=== PATIENT | female | born 1940 | race Caucasian/White ===

== ENCOUNTER 2023-09-07 12:22 | Emergency (ER) | payer MEDICARE, SELFPAY ==
[2023-09-07 12:22] VITALS: BP 166/90; PULSE 90; RESP 20; TEMP 36.3; O2SAT 98; BMI 18.9
--- NOTE | 2023-09-07 12:32 | CT_ITS ---
FINAL REPORT CLINICAL HISTORY: trauma, critical injury suspected COMPARISON: None FINDINGS: Axial imaging of the lumbar spine was obtained without contrast. Sagittal and coronal reformatted images were also obtained and reviewed.This study was performed with techniques to keep radiation doses as low as reasonably achievable (ALARA). Individualized dose reduction techniques using automated exposure control or adjustment of mA and/or kV according to the patient's size were employed. There is no fracture. Rightward curvature is noted of the lumbosacral spine. There is mild retrolisthesis of L1 on L2. Vacuum phenomenon is noted at several levels. The disc spaces are preserved. There is no evidence of significant central canal stenosis. IMPRESSION: No acute bony abnormality. Reviewed, Interpreted and Dictated by Dayo Brown III, MD Transcribed by Ondina Zhang Authenticated and [facility]
--- NOTE | 2023-09-07 12:32 | CT_ITS ---
FINAL REPORT CLINICAL HISTORY: Fell 10 feet onto head. FINDINGS: Axial CT images of the cervical spine were obtained without contrast. Sagittal and coronal reformatted images were also obtained. This study was performed with techniques to keep radiation doses as low as reasonably achievable (ALARA). Individualized dose reduction techniques using automated exposure control or adjustment of mA and/or kV according to the patient's size were employed. There is no evidence of fracture or dislocation. There are moderate degenerative changes with multilevel neural foraminal narrowing. There is moderate anterolisthesis of L3 on 4. There is no evidence of canal stenosis. No paraspinous soft tissue abnormality is seen. Limited images of the upper thorax are unremarkable. Right carotid stent is identified. IMPRESSION: Moderate degenerative changes without acute bony abnormality. Reviewed, Interpreted and Dictated by Dayo Brown III, MD Transcribed by Fiona Katz Authenticated and [facility]
--- NOTE | 2023-09-07 12:32 | CT_ITS ---
FINAL REPORT TECHNIQUE: Axial images through the pelvis were performed by computed tomography. Sagittal and coronal reconstruction images were performed. This study was performed with techniques to keep radiation doses as low as reasonably achievable (ALARA). Individualized dose reduction techniques using automated exposure control or adjustment of mA and/or kV according to the patient's size were employed. CLINICAL HISTORY: fall, L sided pain COMPARISON: None FINDINGS: No fracture is identified. No dislocation identified. No significant degenerative changes identified. There are mild vascular calcifications. Left iliac vein stent is present. IMPRESSION: No acute process. Reviewed, Interpreted and Dictated by Dayo Brown III, MD Transcribed by Ondina Zhang Authenticated and [facility]
--- NOTE | 2023-09-07 12:32 | CT_ITS ---
FINAL REPORT CLINICAL HISTORY: Fell 10 feet onto head. L chest tenderness COMPARISON: None FINDINGS: Thin section axial CT images of the chest were obtained with contrast. 3D reformatted images were also obtained. This study was performed with techniques to keep radiation doses as low as reasonably achievable (ALARA). Individualized dose reduction techniques using automated exposure control or adjustment of mA and/or kV according to the patient's size were employed. There is no evidence of pulmonary embolism. There is no evidence of thoracic aortic aneurysm or dissection. There is no evidence of mediastinal or hilar mass or adenopathy. There is no evidence of pulmonary mass or nodule. No localized inflammatory process is seen within the lungs. Mild atelectasis is noted bilaterally. There are nondisplaced lateral rib fractures of the left fifth, sixth, seventh, and eighth ribs. No evidence of pneumothorax is seen. No pleural effusion is identified. IMPRESSION: Fractures of the left fifth through eighth ribs laterally, nondisplaced, without evidence of pneumothorax or pleural effusion. No evidence of thoracic aorta dissection or aneurysm is seen. There is no evidence of pulmonary embolus. Reviewed, Interpreted and Dictated by Dayo Brown III, MD Transcribed by Angelia Stewart Authenticated and [facility]
--- NOTE | 2023-09-07 12:32 | CT_ITS ---
FINAL REPORT TECHNIQUE: Thin-section axial CT with IV contrast supplemented with multi planar reconstruction under CT angiogram protocol was performed of the neck. This study was performed technique to keep radiation doses as low as reasonably achievable, (ALARA). NASCET criteria was utilized during interpretation. CLINICAL HISTORY: trauma, critical injury suspected COMPARISON: None FINDINGS: Aortic arch: Arch shows no significant narrowing. Great vessel origins are widely patent. Right carotid: There is a stent present in the right common carotid artery extending into the internal carotid artery, which is patent. Left carotid: There is mild plaque at the left carotid bulb without evidence of significant stenosis. Vertebrals: Left vertebral artery is dominant. No significant stenosis is present. IMPRESSION: Stent in the right common carotid artery extending into the internal carotid artery, patent. Mild plaque in the left carotid bulb without evidence of significant stenosis. No evidence of significant narrowing or dissection in any of the cervical vessels. Reviewed, Interpreted and Dictated by Dayo Brown III, MD Transcribed by Angelia Stewart Authenticated and [facility]
--- NOTE | 2023-09-07 12:32 | CT_ITS ---
FINAL REPORT CLINICAL HISTORY: Fell 10 feet onto head. FINDINGS: Axial images of the head were obtained without contrast. Coronal reformatted images were also obtained. This study was performed with techniques to keep radiation doses as low as reasonably achievable (ALARA). Individualized dose reduction techniques using automated exposure control or adjustment of mA and/or kV according to the patient's size were employed. There is generalized age-appropriate atrophy. Periventricular low-attenuation areas are seen consistent with moderate chronic ischemic changes. There is right convexity encephalomalacia. There is no evidence of intracranial hemorrhage or mass. There is no evidence of acute infarct. There is no evidence of shift of the midline structures. There is right scalp soft tissue air. There is opacification of several left mastoid air cells. IMPRESSION: Atrophy and moderate periventricular chronic ischemic changes. Right scalp soft tissue air. Reviewed, Interpreted and Dictated by Dayo Brown III, MD Transcribed by Fiona Katz Authenticated and . [facility]
--- NOTE | 2023-09-07 12:32 | CT_ITS ---
FINAL REPORT CLINICAL HISTORY: trauma, critical injury suspected COMPARISON: None FINDINGS: Axial CT images of the thoracic spine were obtained without contrast. Sagittal and coronal reformatted images were also obtained. This study was performed with techniques to keep radiation doses as low as reasonably achievable (ALARA). Individualized dose reduction techniques using automated exposure control or adjustment of mA and/or kV according to the patient''s size were employed. There is no evidence of fracture. There is dextroscoliosis of the thoracic spine. Mild degenerative changes are noted. There is no evidence of significant canal stenosis. Numerous bilateral renal stones are noted. IMPRESSION: No fracture or acute bony abnormality. No significant central canal stenosis. Numerous bilateral renal stones. Reviewed, Interpreted and Dictated by Dayo Brown III, MD Transcribed by Ondina Zhang Authenticated and [facility]
--- NOTE | 2023-09-07 12:32 | CT_ITS ---
FINAL REPORT TECHNIQUE: A CTA of the abdomen and pelvis was performed. This study was performed with techniques to keep radiation doses as low as reasonably achievable (ALARA). Individualized dose reduction techniques using automated exposure control or adjustment of mA and/or kV according to the patient's size were employed. CLINICAL HISTORY: Fell 10 feet onto head. L chest tenderness COMPARISON: None FINDINGS: CTA ABDOMEN AND PELVIS: ABDOMEN/PELVIS: There is mild nonspecific gallbladder wall thickening. The liver, spleen, pancreas, adrenals are unremarkable in appearance. Bilateral renal cysts are present, however there is a 16mm mass in the mid right kidney with peripheral calcification or enhancement, that does not have an appearance consistent with a simple cyst. Left renal scarring with caliectasis is present. The appendix is normal in appearance. No free fluid or free air is identified in the abdomen or pelvis. CTA: The abdominal aorta is ectatic without evidence of dissection. The celiac, superior mesenteric artery, are unremarkable in appearance. The inferior mesenteric artery is patent. There is mild irregular plaque in the renal arteries bilaterally without significant stenosis. The iliac arteries reveal mild plaque but no significant stenosis. A left common iliac vein stent is present. There is ectasia of the common femoral arteries bilaterally. IMPRESSION: No significant vascular abnormality is identified, specifically no evidence of vascular dissection is seen. Mild plaque in the renal arteries without significant stenosis. 16 mm mid right renal mass with peripheral calcification or enhancement, that does not have an appearance suggestive of a simple cyst. Suggest renal mass protocol CT or MRI for further evaluation. Reviewed, Interpreted and Dictated by Dayo Brown III, MD Transcribed by Angelia Stewart Authenticated and [facility]
--- NOTE | 2023-09-07 12:32 | CT_ITS ---
FINAL REPORT TECHNIQUE: Thin section axial CT with IV contrast supplemented with multiplanar reconstruction under CT angiogram protocol. 3-D reconstructions were performed. This study was performed with techniques to keep radiation doses as low as reasonably achievable (ALARA). Individualized dose reduction techniques using automated exposure control or adjustment of mA and/or kV according to the patient''s size were employed. CLINICAL HISTORY: trauma, critical injury suspected COMPARISON: None FINDINGS: The distal vertebral, basilar and distal internal carotid arteries have an unremarkable appearance. No aneurysm is seen. Major intracranial vessels are patent without significant stenosis. IMPRESSION: No significant intracranial vascular abnormality identified. Reviewed, Interpreted and Dictated by Dayo Brown III, MD Transcribed by Angelia Stewart Authenticated and [facility]
--- NOTE | 2023-09-07 12:37 | ED_ITS ---
Discharge Plan Disposition Patient Disposition: Home, Self-Care Prescriptions Prescriptions: New hydrocodone-acetaminophen 5-325 mg tablet 1 tab PO Q6H PRN (Reason: pain) Qty: 10 0RF methocarbamol 750 mg tablet 1,500 mg PO TID 5 Days Qty: 30 0RF Referrals Follow up/Referrals: Provider,Referral, MD [Primary Care Provider] - See instructions Activity Restrictions/Add. Instructions Additional Instructions/Restrictions: Call your family doctor to establish care for this visit to the emergency department and schedule follow-up within 48 hours to ensure improvement. If you have any worsening of your condition or any other concerning signs or symptoms, return to the emergency department or your primary care doctor for further evaluation. Clinical Impressions Clinical Impression: Fracture of multiple ribs of left side, Closed head injury, Fall Discharge ED Provider: Maxime Serrano General Adult HPI General Chief complaint: Fall Stated complaint: fall Time Seen by Provider: 09/07/23 12:28 History of Present Illness HPI narrative: Please note that above description of symptoms, in this electronic medical record under categorization of recalled from ER triage doctor by RN are reflective of an initial nursing assessment, however, is not reflective of my full history and physical exam that was personally taken and clarified. Consequentially, this preceding description of symptoms, which may include the patient's categorized chief complaint in the EMR, do not reflect my personal clinical impression, and the ultimate description of history of present illness and patient stated complaints should be deferred to this section of the note. Unless stated otherwise or congruent with this section of the note, additional signs, symptoms, or incongruence should be interpreted as inaccurate with my clinical impression. Related Data Previous Rx's Medication Instructions Recorded hydrocodone 5 mg-acetaminophen 325 1 tab PO Q6H PRN pain #10 tabs 09/07/23 mg tablet methocarbamol 750 mg tablet 1,500 mg (2 x 750 mg) PO TID 5 09/07/23 days #30 tabs Allergies Allergy/AdvReac Type Severity Reaction Status Date / Time ciprofloxacin Allergy Unknown Verified 09/07/23 12:39 allergy reaction codeine Allergy Unknown Verified 09/07/23 12:39 allergy reaction guaifenesin Allergy Unknown Verified 09/07/23 12:39 allergy reaction levofloxacin [From Levaquin] Allergy Unknown Verified 09/07/23 12:39 allergy reaction meperidine [From Demerol] Allergy Unknown Verified 09/07/23 12:39 allergy reaction morphine Allergy Unknown Verified 09/07/23 12:39 allergy reaction Penicillins Allergy Unknown Verified 09/07/23 12:39 allergy reaction Sulfa (Sulfonamide Allergy Unknown Verified 09/07/23 12:39 Antibiotics) allergy reaction PFSH PFS Disclaimer: The information contained in this section may have been updated after the patient was seen, as this information can be updated by other users. Social History Smoking Status: Never smoker alcohol intake: former current occupational status: unemployed Travel in the last 8 weeks: None ROS Obtained: Yes All systems reviewed & no additional complaints except as documented Physical Exam General General appearance: alert Head Head exam: normocephalic and other (Last ration) Eye Eye exam: Present normal appearance, PERRL and EOMI Neck Neck exam: Present normal inspection, full ROM and trachea midline Chest Chest inspection: Present tenderness Respiratory Respiratory exam: Absent respiratory distress, wheezes, stridor, accessory muscle use or prolonged expiratory phase Cardiovascular Cardiovascular exam: Present other (Pulses equal symmetric in upper and lower extremities) Abdominal Exam Abdominal exam: Present soft; Absent distention, tenderness or pulsatile mass Extremities Exam Extremities exam: Absent edema Neurological Exam Neurological exam: Present alert, oriented X3 and CN II-XII intact; Absent motor sensory deficit Skin Skin exam: Present warm and dry; Absent diaphoresis or erythema Medical Decision Making Medical Records Medical records reviewed: Yes I reviewed the patient's medical records. Marv Inquiry Pt receiving controlled substance: No Marv was queried for this patient: No Vital Signs: 09/07/23 12:22 09/07/23 13:30 09/07/23 14:00 Temperature 97.4 F L Temperature Source Oral Pulse Rate 84 90 Pulse Rate [Right] 90 Respiratory Rate 20 Blood Pressure 172/99 H 180/109 H Blood Pressure [Right Arm] 166/90 H Blood Pressure Mean 147 153 Blood Pressure Mean [Right Arm] 115 02 Sat by Pulse Oximetry 98 94 L 93 L Oxygen Delivery Method Room Air 09/07/23 14:31 09/07/23 15:00 Temperature Temperature Source Pulse Rate 78 80 Pulse Rate [Right] Respiratory Rate Blood Pressure 192/171 H 157/98 H Blood Pressure [Right Arm] Blood Pressure Mean 176 122 Blood Pressure Mean [Right Arm] 02 Sat by Pulse Oximetry 90 L 90 L Oxygen Delivery Method Lab Data Lab Results 09/07/23 12:30: PT 11.3, INR 1.01, APTT 25.4, Sodium 139, Potassium 4.8, C hloride 114 H, Carbon Dioxide 23, Anion Gap 6.8, BUN 29 H, Creatinine 1.40 H, Estimated Creat Clear 24, Estimated GFR 36 L, Est GFR ( Amer) 44 L, Glucose 94, Calcium 8.9, Total Bilirubin 0.8, AST 44 H, ALT 22, Alkaline Phosphatase 105, Total Protein 7.3, Albumin 3.7, Globulin 3.6 H, A lbumin/Globulin Ratio 1.0 L 09/07/23 12:30 Orders (Tests/Meds): ED MEDICATIONS Generic Name Dose Route Start Last Admin Trade Name Freq PRN Reason Stop Dose Admin Sodium Chloride 10 ml 09/07/23 12:32 Sodium Chloride 0.9% 10ml Flush Syringe IV 10/07/23 12:31 NEEDED PRN Maintain IV Site Discontinued Medications Generic Name Dose Route Start Last Admin Trade Name Freq PRN Reason Stop Dose Admin Hydromorphone HCl 0.5 mg 09/07/23 14:49 09/07/23 15:01 Hydromorphone 2mg/Ml Syringe IV 09/07/23 14:50 0.5 mg ONCE ONE Administration Lactated Ringer's 1,000 mls @ 999 mls/hr 09/07/23 12:32 09/07/23 13:09 Lactated Ringer's 1000 Ml Bag IV 09/07/23 13:32 999 mls/hr .Q1H1M ONE Administration Iopamidol 100 ml 09/07/23 13:07 09/07/23 13:08 Iopamidol-370 (76%);100ml Bottle IV 09/07/23 13:08 100 ml ONCE ONE Administration Iopamidol 25 ml 09/07/23 13:08 09/07/23 13:09 Iopamidol-370 (76%);100ml Bottle IV 09/07/23 13:09 25 ml ONCE ONE Administration Sodium Chloride 50 ml 09/07/23 13:07 09/07/23 13:08 0.9 % Sodium Chloride 50 Ml Vial IV 09/07/23 13:08 50 ml ONCE ONE Administration Sodium Chloride 10 ml 09/07/23 13:07 09/07/23 13:08 Sodium Chloride 0.9% 10ml Syr (Rad Only) IV 09/07/23 13:08 10 ml ONCE ONE Administration ORDERS Category Date Time Status CT angio abdomen pelvis Stat Cat Scan 09/07/23 12:[address] angio chest - dissection Stat Cat Scan 09/07/23 12:[address] angio head Stat Cat Scan 09/07/23 12:[address] angio neck Stat Cat Scan 09/07/23 12:[address] bony pelvis Stat Cat Scan 09/07/23 12:[address] cervical spine wo con Stat Cat Scan 09/07/23 12:[address] head/brain wo con Stat Cat Scan 09/07/23 12:[address] lumbar spine wo con Stat Cat Scan 09/07/23 12:[address] thoracic spine wo con Stat Cat Scan 09/07/23 12:32 Completed Activated Partial Thrombo Time Stat Lab 09/07/23 12:30 Completed Comprehensive Metabolic Panel Stat Lab 09/07/23 12:30 Completed Prothrombin Time INR Stat Lab 09/07/23 12:30 Completed Medical Decision Narrative: 83-year-old female 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 Patient states that she was up about 10 feet high on a concrete rock wall when she slipped. She fell about 3 to 4 feet directly onto her head landed on gravel, fell onto the next tear of the wall onto her left side. This was another 2 to 3 feet, fell onto the next year and this was in the next couple feet. 10 feet total. No loss of consciousness, but having significant pain in the left side of her chest, back of her head. Denies vision changes, numbness, tingling, weakness arms or legs, bowel or bladder dysfunction. Was ambulatory, walked inside, called EMS. Patient adamantly declining cervical collar with EMS and with us here. History was obtained via conversation with patient and EMS. On arrival, patient hemodynamically stable, alert, oriented x4, appropriate, GCS 15, moving all extremities spontaneously, pupils equal and reactive to light. Full physical exam performed and significant for laceration on right occiput. Nearly hemostatic. Patient neurologically intact, oriented. No cervical spine tenderness, but patient adamantly declining cervical collar. Bilateral breath sounds and pulses equal in upper and lower extremities. Chest wall tenderness on the left side without outward signs of injury. Abdomen soft, nontender, nondistended. No flank tenderness. Differential includes intracranial injury, intrathoracic injury, intra-abdominal/pelvic injury, neurologic injury, vascular injury, fracture, dislocation, concussion, among others.. Patient was given Toradol, morphinefor symptomatic management and correction of underlying abnormalities. Workup independently interpreted and significant for nonactionable hematologic workup. CT head without acute intracranial hemorrhage. CT spines without acute spinal abnormality. Patient CT chest with ribs 5 through 8 broken on the left without underlying pulmonary contusion or pneumothorax. No aortic injury. See radiology read for full review of final results. Patient's scalp was closed with 4 anahi. Patient requiring multiple doses of pain medication. I told patient she would benefit from admission and talked through morbidity mortality of multiple rib fractures in someone her age. Patient states that she would rather go home because she has animals to take care of. She also has family that can help her around the house. Incentive spirometer was given to patient. She was able to pull 1500 mL multiple times in a row with minimal difficulty, although stating that she does have pain in her left chest. Because patient at baseline without signs or symptoms of clinical decompensation, deemed appropriate for discharge. Results were relayed to patient who voiced understanding and were agreeable to outpatient management and follow up. I discussed my clinical impression with patient and answered all questions. At this time, the evidence for any other entities in the differential is insufficient to warrant any further testing or ED observation. This was explained as well. Advisory was given that persistent or worsening symptoms require further evaluation. I confirmed the understanding of this discussion. Paper Inspector disclaimer Much of this encounter note is an electronic machine filler servicer spoken language to printed text. Electronic machine filler servicer of the spoken language may permit errors. Although I have reviewed the note, some errors may still exist. Procedures Laceration Laceration 1: Site: scalp Side (If applicable): right Size (cm): 3 Description: linear Depth: simple, single layer Pre-repair: wound explored and deep structures intact Skin layer closed with: other (Anahi) Number of sutures: 4 Critical Care Critical Care Time Critical Care Time: Yes (polysystem) Attestation: On 09/07/23, the high probability of a clinically significant, sudden or life threatening deterioration of the following system(s) required my full and direct attention, intervention and personal management. The time I documented below is in addition to time spent performing reported procedures but includes the following listed in this critical care notation. Total Time Total Critical Care Time: 45
[2023-09-07 12:40] LABS: Chloride 114 mmol/L (98-107); Potassium 4.8 mmoL/L (3.5-5.1); Sodium 139 mmol/L (136-145)
[2023-09-07 12:42] LABS: Blood Urea Nitrogen 29 mg/dl (7-17); Creatinine Clearance Estimated 24 mL/min (50-200); Estimated Glomerular Filt Rate 36 ml/min (>60); GFR (African American) 44 ML/MIN (>60)
[2023-09-07 12:43] LABS: Alanine Aminotransferase 22 U/L (12-78); Albumin Level 3.7 g/dl (3.5-5.0); Alkaline Phosphatase 105 U/L (38-126); Anion Gap 6.8 mEq/L (5-15); Aspartate Amino Transferase 44 U/L (14-36); Bilirubin,Total 0.8 mg/dl (0.2-1.3); Calcium 8.9 mg/dl (8.4-10.2); Carbon Dioxide 23 mmol/L (22.0-30.0); Globulin 3.6 g/dL (1.3-3.2); Glucose 94 mg/dl (74-100); Total Protein,Serum 7.3 g/dl (6.3-8.2)
[2023-09-07 12:46] LABS: Activated Partial Thrombo Time 25.4 seconds (22.8-30.6); INR 1.01 (0.9-1.1); Prothrombin Time 11.3 seconds (10.1-12.5)
[2023-09-07] MEDS: IOPAMIDOL-370 (76%);100ML BOTTLE 100 ML IV (13:08)
[2023-09-07] MEDS: 0.9 % SODIUM CHLORIDE 50 ML VIAL IV (13:08)
[2023-09-07] MEDS: SODIUM CHLORIDE 0.9% 10ML SYR (RAD ONLY) 10 ML IV (13:08)
[2023-09-07] MEDS: LACTATED RINGERS 1000ML 1,000 ML 999 ML IV (13:09)
[2023-09-07] MEDS: IOPAMIDOL-370 (76%);100ML BOTTLE 25 ML IV (13:09)
[2023-09-07 13:30] VITALS: BP 172/99; PULSE 84; O2SAT 94
[2023-09-07 14:00] VITALS: BP 180/109; PULSE 90; O2SAT 93
[2023-09-07 14:31] VITALS: BP 192/171; PULSE 78; O2SAT 90
[2023-09-07 15:00] VITALS: BP 157/98; PULSE 80; O2SAT 90
[2023-09-07] MEDS: HYDROMORPHONE 2MG/ML SYRINGE 0.5 MG IV (15:01)
[2023-09-07 16:13] VITALS: BP 157/81; PULSE 71; RESP 18; TEMP 36.6; O2SAT 94
== END 2023-09-07 16:16 | disposition home or self-care (01) ==
PROVIDERS: Emergency Provider Emergency Medicine
DX: S22.42XA Multiple fractures of ribs, left side, initial encounter for closed fracture; S09.8XXA Other specified injuries of head, initial encounter; S01.01XA Laceration without foreign body of scalp, initial encounter; W17.89XA Other fall from one level to another, initial encounter; Z86.718 Personal history of other venous thrombosis and embolism; Z86.73 Personal history of transient ischemic attack (TIA), and cerebral infarction without residual deficits; Z79.01 Long term (current) use of anticoagulants
CPT/HCPCS: 12002; 70450; 70496; 70498; 71275; 72125; 72128; 72131; 72192; 74174; 80053; 85610; 85730; 96361; 96374; 99291; J1170; J7120; Q9967